=== PATIENT | female | born 1990 | race Caucasian/White ===

== ENCOUNTER → 2017-05-29 | Outpatient (CLI) | payer OTHER ==
[~2017-05-29] MED LIST: ALLEGRA ALLERG180 MG PO; Anusol-HC 2.5%30 GM EXT; BUPR100 PO; CYCL10 PO; DOCU100 PO; FAMO20 PO; FENUGREEK500 MG PO; FLAX SEED PO; HYDACE5 PO; HYDACE5325 PO; METO10 PO; METPRE4DP PO; MILK THISTLE140 MG PO; NAPR500 PO; OMEP20ER PO; OMEP40CA12 PO; ONDA4ODT; PERM5TC TOP; PROM25 PO; QUET300 PO; RANI150EL; SERT50 PO; TRAZ50; Tessalon200 MG PO; Verotin-Gr Cap1 EACH PO
[2017-05-30 08:57] LABS: Candida species (DNA Probe) Negative (NEGATIVE); G. vaginalis (DNA Probe) Negative (NEGATIVE); T. vaginalis (DNA Probe) Negative (NEGATIVE)
== END ==
LOC: LAB 10:40
PROVIDERS: Obstetrics & Gynecology
DX: N76.0 Acute vaginitis (principal)
CPT/HCPCS: 87480; 87510; 87660

== ENCOUNTER → 2017-09-12 | Outpatient (CLI) | payer OTHER ==
[~2017-09-12] MED LIST changes: -ONDA4ODT; -PROM25 PO; -RANI150EL; -TRAZ50
[2017-09-13 10:17] LABS: Candida species (DNA Probe) Negative (NEGATIVE); G. vaginalis (DNA Probe) Negative (NEGATIVE); T. vaginalis (DNA Probe) Negative (NEGATIVE)
== END ==
LOC: LAB SHORT 15:40 → LAB 15:40
PROVIDERS: Obstetrics & Gynecology
DX: N76.0 Acute vaginitis (principal)
CPT/HCPCS: 87480; 87510; 87660

== ENCOUNTER 2017-09-19 09:07 | Day surgery (SDC) | payer OTHER ==
[~2017-09-19] VITALS: Ht 154.9 cm; Wt 103.0 kg
== END 2017-09-19 14:00 | disposition home or self-care (01) ==
LOC: ORSCMMR 09:07 → ORD 10:30 → ORSCMMR 10:30
PROVIDERS: Obstetrics & Gynecology
PROC: 0UT74ZZ Resection of Bilateral Fallopian Tubes, Percutaneous Endoscopic Approach (ICD-10-PCS; principal; 2017-09-19 10:30)
DX: Z30.2 Encounter for sterilization (principal); E66.01 Morbid (severe) obesity due to excess calories; Z68.41 Body mass index [BMI] 40.0-44.9, adult; Z79.899 Other long term (current) drug therapy
CPT/HCPCS: 88302; J0171; J1100; J1885; J2250; J2370; J2405; J2710; J3010; J7030; J7120